=== PATIENT | male | born 1990 | race Caucasian/White ===

== ENCOUNTER 2023-12-29 13:37 | Emergency (ER) | payer OTHER, SELFPAY ==
[2023-12-29 13:41] VITALS: BP 166/100
[2023-12-29] MEDS: ADACEL 0.5 ML IM (14:38)
[2023-12-29] MEDS: MOTRIN 600 MG PO (14:38)
--- NOTE | 2023-12-29 15:21 | ED.GENMED ---
History of Present Illness
General
Chief Complaint: Skin Surface Trauma
Source: patient
Exam Limitations: none
Time Seen by Provider: 12/29/23 14:02
Nursing documentation reviewed up to this point in time: agreed with
Travel History
Have you had any contact with someone who has COVID-19?: No
Do you have any symptoms of coronavirus? Fever > 100 degrees, chills, cough, shortness of breath, sore throat, loss of taste or smell, muscle aches, or headache?: No
History of Present Illness
History of Present Illness:
33 y/o M with h/o substance abuse in the past, HTN
here with b/l anterior lower leg pain and swelling and bruising after hitting his shins on a truck bed that he was trying to jump into
he says he slipped and banged his shins hard
has lac to right lower extremity
bruising to LLE
no numbness/tingling/weakness in the foot, no foot drop, no calf pain
able to bend knees
tetanus outdated
h/o htn, says he isn't medicated currently
Past History
Past History
ED Past Medical History: None
ED Past Surgical History: None
Patient has exhibited threatening behavior?: No
Social History
Alcohol: Former
Living: with family
Review of Systems
Review of Systems
Allergies reviewed?: Yes
All Other Systems: Not applicable
Phy Exam
Physical Exam
Physical Exam:
GENERAL: Alert , in no apparent distress
HEAD: NCAT
CARDIAC: Regular rate and rhythm, no edema normal pulses 2+ DP
LUNGS: Clear breath sounds bilaterally, no acute respiratory distress, no wheezes/rales/rhonchi
ABDOMEN: Soft, without focal tenderness, no r/g, no cvat
NEUROLOGICAL: Alert and oriented, no focal neuro deficits, CN intact, 5/5 strength, sensation intact
SKIN: Warm and dry,
pt has a 3 cm laceration anterio rlower leg on right above ankle
some STS of the right lower leg anteriorly around the laceration but calf soft
MUSCULOSKELETAL: left lower extremity anterior STS bruising moderate but no calf swelling or tenderness
compartment soft b/l
normal dp pulses
normal strength and sensation
able to flex both knees and ankles
PSYCH: Normal and appropriate interaction.
Course
Orders/Labs/Results
Orders:
Orders
12/29/23 14:19
Ibuprofen [Motrin] 600 mg PO NOW STA
Tetanus/Diphth/Acelpertussis [Adacel] 0.5 ml IM .ONCE ONE
Tib/Fib, Left 2 View [CR Leg Tibia/fibula Left 2 Vw] Urgent
Comment:
Reason For Exam: HIT SHINS ON A TRUCK
Tib/Fib, Right 2 View [CR Leg Tibia/fibula Right 2 Vw] Urgent
Comment:
Reason For Exam: HIT SHINS ON A TRUCK
Vital Signs
Initial and Last Documented VS:
Initial Vital Signs
Temp Pulse Resp BP Pulse Ox
98.2 F 110 22 166/100 99
12/29/23 13:41 12/29/23 13:41 12/29/23 13:41 12/29/23 13:41 12/29/23 13:41
Last Documented Vital Signs
Temp Pulse Resp BP Pulse Ox
98.2 F 71 18 166/110 100
12/29/23 13:41 12/29/23 16:09 12/29/23 16:09 12/29/23 16:09 12/29/23 16:09
*Critical Care Note
Total Time (30-74mins, 75-104mins- exclusive of procedures): Not Applicable
ED Attending Note
-
Portions of this chart may have been created with voice recognition software.� Occasional wrong word or��sound alike� substitutions may have occurred due to the inherent limitations of voice recognition software.
Discharge Plan
Departure
Patient Disposition: Home (Routine Discharge)
Date of Disposition: 12/29/23
Time of Disposition: 15:54
Patient with high blood pressure during this ER visit?: Yes
Condition: Fair
Covid-19: Not Applicable
Discharge Problem:
Contusion of left leg, Laceration of leg not thigh
Instructions: Contusion (DC), Laceration Repair With Stitches (DC), BLOOD PRESSURE
Prescriptions:
No Action
penicillin V potassium 500 MG tablet
500 mg PO Q6 Qty: 39 0RF
ketorolac 10 MG tablet
10 mg PO Q6HPRN PRN (Reason: pain) Qty: 10 0RF
Referrals:
Jennifer Wells, DO [Family Provider] - Follow up in 10 days (FOR 7-10 DAYS)
Activity Restrictions/Additional Instructions:
KEEP THE WOUND CLEAN AND DRY FOR 24 HOURS
AFTER THAT YOU CAN GET IT WET IN THE BATH/SHOWER ONCE A DAY AND MAKE SURE IT IS CLEAN AND THERE IS NO DRIED BLOOD ON THE STITCHES
APPLY NEOSPORIN AND A BANDAID
THE STITCHES NEED TO BE REMOVED IN ABOUT 10 DAYS, SEE YOUR DOCTOR FOR THIS.
THE LAST DAY BEFORE STITCHES OUT, NO OINTMENT, LEAVE OPEN TO AIR
APPLY ICE OFF AND ON TO YOUR LEGS
ELEVATE
MAKE SURE TO WEAR THE THOMAS WRAPS DURING THE DAY AND TAKE OFF AT NIGHT
WATCH FOR SIGNS OF INFECTION AND RETURN NEEDED FOR PAIN, SWELLING, REDNESS, DRAINAGE, BLEEDING.
RETURN IMMEDIATELY FOR SEVERE SWELLING IN THE LEG, NUMBNESS IN THE LEG, WEAKNESS IN THE LEG, FOOT DROP, COLOR CHANGE OR ANY CONCERNS.
MOTRIN NEEDED FOR PAIN.
Interventions
Interventions:
*Risk Screen - Suicide Last Done: 12/29/23 13:39
*General Assessment Last Done: 12/29/23 13:39
*Neglect/Abuse Screening Last Done: 12/29/23 13:41
*Nursing Disposition Last Done: 12/29/23 16:21
ED-Skin Assessment Last Done: 12/29/23 14:09
Discharge Date and Time
Discharge Date/Time: 12/29/23 16:22
Print Language: TONGAN
[2023-12-29 16:09] VITALS: BP 166/110
== END 2023-12-29 16:22 | disposition home or self-care (01) ==
LOC: EMR 13:37
PROVIDERS: EMERGENCY PHYSICIAN Emergency Medicine; FAMILY PHYSICIAN Internal Medicine
DX: S80.12XA Contusion of left lower leg, initial encounter (principal); S80.11XA Contusion of right lower leg, initial encounter; S81.811A Laceration without foreign body, right lower leg, initial encounter; W22.8XXA Striking against or struck by other objects, initial encounter; I10 Essential (primary) hypertension; F19.11 Other psychoactive substance abuse, in remission
CPT/HCPCS: 99283; 90471; 73590; 90715